=== PATIENT | female | born 1990 | race Caucasian/White ===

== ENCOUNTER 2019-10-20 20:31 | Emergency (ER) | payer SELFPAY ==
[2019-10-20] MEDS ORDERED: Sodium Chloride 0.9% 2.5 ML Syringe FLUSH PRN (20:48)
[2019-10-20] MEDS ORDERED: Morphine 2 MG/ML Syringe IVPUSH ONE (20:48)
[2019-10-20] MEDS ORDERED: Sodium Chloride 0.9% 1,000 ML IV ONE ×2 (20:48→21:55)
[2019-10-20] MEDS ORDERED: Ondansetron 4 MG/2 ML SDV IVPUSH ONE (20:48)
[2019-10-20] MEDS ORDERED: Sodium Chloride 0.9% 10 ML Syringe FLUSH PRN (20:48)
--- NOTE | 2019-10-20 20:49 | EDM.PDOC ---
ED HPI GENERAL MEDICAL PROBLEM - General Chief Complaint: Diabetic Complaint Stated Complaint: VOMITING AND SUGAR LEVEL IS HIGH Time Seen by Provider: 10/20/19 20:40 - History of Present Illness INITIAL COMMENTS - FREE TEXT/NARRATIVE: HISTORY AND PHYSICAL: History of present illness: The patient is a 28-year-old female who is a type I diabetic and has an insulin pump in place and has been on the insulin pump for almost 3 years following with a provider back at home in [place], and who recently relocated here and has no primary care set up, who presents with waking this morning with diffuse body aches and pains including lower back pain and diffuse abdominal pain more epigastric and then intractable nausea and vomiting all day. The patient says her blood sugar has been up and down all day and she is not sure if that is the problem. She does says that yesterday she did have some upper respiratory symptoms including a slight cough and congestion and body aches but no fevers or specific symptoms that she was concerned about. When she woke this morning she had all these other symptoms. She says her abdominal pain is diffuse but more in the epigastric area and suprapubic area and the pain and vomiting started simultaneously. She's had no diarrhea with this and has only had 2 small urine outputs. Her last hemoglobin A1c was about 6 months ago and was 6-1/ 2. The patient's insulin pump has a basal rate and also doses her with sliding scale insulin, and she also doses herself with sliding scale insulin as needed. She says she has not eaten much today. She is on control and denies as she just finished her period. She has no urinary complaints such as dysuria frequency hematuria and has no specific flank pain. This patient did not get her influenza shot this year. She tells me that she had a swallow study done at home in [place] which diagnosed her with gastroparesis but she does not take any medicines regularly for that and her last episode of gastroparesis and vomiting was more than 6 months ago. Review of systems: As per history of present illness and below otherwise all systems reviewed and negative. Past medical history: As per history of present illness and as reviewed below otherwise noncontributory. Surgical history: As per history of present illness and as reviewed below otherwise noncontributory. Social history: No reported history of drug or alcohol abuse. Family history: As per history of present illness and as reviewed below otherwise noncontributory. Physical exam: General: Well-developed well-nourished female who is tearful on my evaluation but is nontoxic and does not look clinically dehydrated with copious tears and normal secretions. Vital signs are noted by me ; patient is very anxious HEENT: Atraumatic, normocephalic, pupils reactive, negative for conjunctival pallor or scleral icterus, mucous membranes moist, throat clear, neck supple, nontender, trachea midline. Lungs: Clear to auscultation, breath sounds equal bilaterally, chest nontender. Heart: S1S2, regular, negative for clicks, rubs, or JVD. Abdomen: Soft, nondistended, no sounds are hypoactive, there is diffuse abdominal tenderness more localized in the epigastrium and suprapubic area but no rebound or guarding. The patient is somewhat exaggerated with my exam. Negative for masses or hepatosplenomegaly. Negative for costovertebral tenderness. Pelvis: Stable nontender. Genitourinary: Deferred. Rectal: Deferred. Extremities: Atraumatic, negative for cords or calf pain. Neurovascular unremarkable. Neuro: Awake, alert, oriented. Cranial nerves II through XII unremarkable. Cerebellum unremarkable. Motor and sensory unremarkable throughout. Exam nonfocal. Back: There is no specific CVA tenderness or any midline tenderness of the thoracic or lumbar spine and there is diffuse paraspinal lumbar discomfort without specific reproducibility Diagnostics: Accu-Chek, CBC CMP amylase lipase lactic acid UA with reflex HCG venous blood gas CMP tones here hemoglobin A1c influenza chest x-ray CT scan of the abdomen and pelvis Therapeutics: IV fluids Zofran Protonix morphine insulin Ativan, tramadol Patient is complaining to nursing of cramping and pain and in the past her provider has given her tramadol for this so she is requesting one tablet Patient is no longer nauseated and she has not vomiting. Her pain in her abdomen is significantly improved as is her muscle aches and cramps. We are currently awaiting the remainder of her testing results. Her heart rate is also normalized rate I will discuss with her the need to connect with a local physician for primary care management of her diabetes and any future issues with her gastroparesis. Impression: Mild hyperglycemia with history of type 1 diabetes, abdominal pain and vomiting with history of gastroparesis improved, diffuse body aches and muscle aches Definitive disposition and diagnosis as appropriate pending reevaluation and review of above. 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: Psychiatric History: Reports: Anxiety, Depression, Suicide Attempt Endocrine/Metabolic History: Reports: Diabetes, Type I Insulin Pump Model and Stunt Woman: metronic - Past Surgical History HEENT Surgical History: Reports: Myringotomy w Tube(s), Tonsillectomy Female Surgical History: Reports: Section, D&C Endocrine Surgical History: Reports: None Social & Family History - Tobacco Use Smoking Status *Q: Current Every Day Smoker Years of Tobacco use: 8 Packs/Tins Daily: 1 - Caffeine Use Caffeine Use: Reports: None - Recreational Drug Use Recreational Drug Use: No ED ROS GENERAL - Review of Systems Review Of Systems: Comprehensive ROS is negative, except as noted in HPI. ED EXAM GENERAL NO PERIP PULSE - Physical Exam Exam: See Below (See dictation) Course - Vital Signs Last Recorded V/S: Last Vital Signs Temp 36.2 C 10/20/19 20:33 Pulse 75 10/20/19 23:47 Resp 14 10/20/19 23:47 BP 106/61 10/20/19 23:47 Pulse Ox 96 10/20/19 23:47 - Orders/Labs/Meds Orders: Active Orders 24 hr Category Date Time Status Sodium Chloride 0.9% [Saline Flush] Med 10/20/19 20:48 Active 10 ml FLUSH ASDIRECTED PRN Sodium Chloride 0.9% [Saline Flush] Med 10/20/19 20:48 Active 2.5 ml FLUSH ASDIRECTED PRN Saline Lock Insert [OM.PC] Stat Oth 10/20/19 20:46 Ordered Medication Orders Sodium Chloride (Saline Flush) 10 ml FLUSH ASDIRECTED PRN PRN Reason: Keep Vein Open Sodium Chloride (Saline Flush) 2.5 ml FLUSH ASDIRECTED PRN PRN Reason: Keep Vein Open Labs: Laboratory Tests 10/20/19 10/20/19 10/20/19 Range/Units 21:01 21:01 21:01 WBC 15.54 H (4.0-11.0) K/uL RBC 5.13 (4.30-5.90) M/uL Hgb 15.1 (12.0-16.0) g/dL Hct 43.2 (36.0-46.0) % MCV 84.2 (80.0-98.0) fL MCH 29.4 (27.0-32.0) pg MCHC 35.0 (31.0-37.0) g/dL RDW Std Deviation 39.2 (28.0-62.0) fl RDW Coeff of Damir 13 (11.0-15.0) % Plt Count 331 (150-400) K/uL MPV 10.00 (7.40-12.00) fL Neut % (Auto) 68.9 (48.0-80.0) % Lymph % (Auto) 23.7 (16.0-40.0) % [place] % (Auto) 6.4 (0.0-15.0) % Eos % (Auto) 0.8 (0.0-7.0) % Baso % (Auto) 0.2 (0.0-1.5) % Neut # (Auto) 10.7 H (1.4-5.7) K/uL Lymph # (Auto) 3.7 H (0.6-2.4) K/uL [place] # (Auto) 1.0 H (0.0-0.8) K/uL Eos # (Auto) 0.1 (0.0-0.7) K/uL Baso # (Auto) 0.0 (0.0-0.1) K/uL Nucleated RBC % 0.0 /100WBC Nucleated RBCs # 0 K/uL VBG pH (7.31-7.41) VBG pCO2 (35-45) mmHG VBG pO2 (30-40) mmHG VBG HCO3 (22-30) mEq/L VBG Total CO2 (41-51) mmol/L VBG Base Excess (-3.0-3.0) Lactate 1.3 (0.20-2.00) mmol/L Sodium 139 (136-145) mmol/L Potassium 4.0 (3.5-5.1) mmol/L Chloride 102 (98-107) mmol/L Carbon Dioxide 23.3 (21.0-32.0) mmol/L BUN 10 (7.0-18.0) mg/dL Creatinine 0.9 (0.6-1.0) mg/dL Est Cr Clr Drug Dosing 88.68 mL/min Estimated GFR (MDRD) > 60.0 ml/min Glucose 328 H (74-106) mg/dL POC Glucose (60-110) mg/dL Hemoglobin A1c (4.5-6.2) % Calcium 8.7 (8.5-10.1) mg/dL Total Bilirubin 0.4 (0.2-1.0) mg/dL AST 18 (15-37) IU/L ALT 31 (14-63) IU/L Alkaline Phosphatase 66 (46-116) U/L Total Protein 7.8 (6.4-8.2) g/dL Albumin 3.9 (3.4-5.0) g/dL Globulin 3.9 (2.6-4.0) g/dL Albumin/Globulin Ratio 1.0 (0.9-1.6) Amylase 42 (25-115) U/L Lipase 68 L (73-393) U/L HCG, Qual (NEG) Urine Color Urine Appearance Urine pH (5.0-8.0) Ur Specific [place] (1.001-1.035) Urine Protein (NEGATIVE) mg/dL Urine Glucose (UA) (NEGATIVE) mg/dL Urine Ketones (NEGATIVE) mg/dL Urine Occult Blood (NEGATIVE) Urine Nitrite (NEGATIVE) Urine Bilirubin (NEGATIVE) Urine Urobilinogen (<2.0) EU/dL Ur Leukocyte Esterase (NEGATIVE) Urine RBC (0-2/HPF) Urine WBC (0-5/HPF) Ur Epithelial Cells (NONE-FEW) Urine Bacteria (NEGATIVE) Urine Mucus (NONE-MOD) Ketones (NEG) 10/20/19 10/20/19 10/20/19 Range/Units 21:01 21: 21:01 WBC (4.0-11.0) K/uL RBC (4.30-5.90) M/uL Hgb (12.0-16.0) g/dL Hct (36.0-46.0) % MCV (80.0-98.0) fL MCH (27.0-32.0) pg MCHC (31.0-37.0) g/dL RDW Std Deviation (28.0-62.0) fl RDW Coeff of Damir (11.0-15.0) % Plt Count (150-400) K/uL MPV (7.40-12.00) fL Neut % (Auto) (48.0-80.0) % Lymph % (Auto) (16.0-40.0) % [place] % (Auto) (0.0-15.0) % Eos % (Auto) (0.0-7.0) % Baso % (Auto) (0.0-1.5) % Neut # (Auto) (1.4-5.7) K/uL Lymph # (Auto) (0.6-2.4) K/uL [place] # (Auto) (0.0-0.8) K/uL Eos # (Auto) (0.0-0.7) K/uL Baso # (Auto) (0.0-0.1) K/uL Nucleated RBC % /100WBC Nucleated RBCs # K/uL VBG pH 7.44 H (7.31-7.41) VBG pCO2 33 L (35-45) mmHG VBG pO2 56 H (30-40) mmHG VBG HCO3 22 (22-30) mEq/L VBG Total CO2 19 L (41-51) mmol/L VBG Base Excess -1.1 (-3.0-3.0) Lactate (0.20-2.00) mmol/L Sodium (136-145) mmol/L Potassium (3.5-5.1) mmol/L Chloride (98-107) mmol/L Carbon Dioxide (21.0-32.0) mmol/L BUN (7.0-18.0) mg/dL Creatinine (0.6-1.0) mg/dL Est Cr Clr Drug Dosing mL/min Estimated GFR (MDRD) ml/min Glucose (74-106) mg/dL POC Glucose (60-110) mg/dL Hemoglobin A1c 8.1 H (4.5-6.2) % Calcium (8.5-10.1) mg/dL Total Bilirubin (0.2-1.0) mg/dL AST (15-37) IU/L ALT (14-63) IU/L Alkaline Phosphatase (46-116) U/L Total Protein (6.4-8.2) g/dL Albumin (3.4-5.0) g/dL Globulin (2.6-4.0) g/dL Albumin/Globulin Ratio (0.9-1.6) Amylase (25-115) U/L Lipase (73-393) U/L HCG, Qual (NEG) Urine Color Urine Appearance Urine pH (5.0-8.0) Ur Specific [place] (1.001-1.035) Urine Protein (NEGATIVE) mg/dL Urine Glucose (UA) (NEGATIVE) mg/dL Urine Ketones (NEGATIVE) mg/dL Urine Occult Blood (NEGATIVE) Urine Nitrite (NEGATIVE) Urine Bilirubin (NEGATIVE) Urine Urobilinogen (<2.0) EU/dL Ur Leukocyte Esterase (NEGATIVE) Urine RBC (0-2/HPF) Urine WBC (0-5/HPF) Ur Epithelial Cells (NONE-FEW) Urine Bacteria (NEGATIVE) Urine Mucus (NONE-MOD) Ketones NEGATIVE (NEG) 10/20/19 10/20/19 10/20/19 Range/Units 21:02 21:16 22:37 WBC (4.0-11.0) K/uL RBC (4.30-5.90) M/uL Hgb (12.0-16.0) g/dL Hct (36.0-46.0) % MCV (80.0-98.0) fL MCH (27.0-32.0) pg MCHC (31.0-37.0) g/dL RDW Std Deviation (28.0-62.0) fl RDW Coeff of Damir (11.0-15.0) % Plt Count (150-400) K/uL MPV (7.40-12.00) fL Neut % (Auto) (48.0-80.0) % Lymph % (Auto) (16.0-40.0) % [place] % (Auto) (0.0-15.0) % Eos % (Auto) (0.0-7.0) % Baso % (Auto) (0.0-1.5) % Neut # (Auto) (1.4-5.7) K/uL Lymph # (Auto) (0.6-2.4) K/uL [place] # (Auto) (0.0-0.8) K/uL Eos # (Auto) (0.0-0.7) K/uL Baso # (Auto) (0.0-0.1) K/uL Nucleated RBC % /100WBC Nucleated RBCs # K/uL VBG pH (7.31-7.41) VBG pCO2 (35-45) mmHG VBG pO2 (30-40) mmHG VBG HCO3 (22-30) mEq/L VBG Total CO2 (41-51) mmol/L VBG Base Excess (-3.0-3.0) Lactate (0.20-2.00) mmol/L Sodium (136-145) mmol/L Potassium (3.5-5.1) mmol/L Chloride (98-107) mmol/L Carbon Dioxide (21.0-32.0) mmol/L BUN (7.0-18.0) mg/dL Creatinine (0.6-1.0) mg/dL Est Cr Clr Drug Dosing mL/min Estimated GFR (MDRD) ml/min Glucose (74-106) mg/dL POC Glucose 270 H (60-110) mg/dL Hemoglobin A1c (4.5-6.2) % Calcium (8.5-10.1) mg/dL Total Bilirubin (0.2-1.0) mg/dL AST (15-37) IU/L ALT (14-63) IU/L Alkaline Phosphatase (46-116) U/L Total Protein (6.4-8.2) g/dL Albumin (3.4-5.0) g/dL Globulin (2.6-4.0) g/dL Albumin/Globulin Ratio (0.9-1.6) Amylase (25-115) U/L Lipase (73-393) U/L HCG, Qual NEGATIVE (NEG) Urine Color YELLOW Urine Appearance SLT CLOUDY Urine pH 6.0 (5.0-8.0) Ur Specific [place] 1.020 (1.001-1.035) Urine Protein NEGATIVE (NEGATIVE) mg/dL Urine Glucose (UA) >=1000 (NEGATIVE) mg/dL Urine Ketones 40 H (NEGATIVE) mg/dL Urine Occult Blood TRACE-INTACT H (NEGATIVE) Urine Nitrite NEGATIVE (NEGATIVE) Urine Bilirubin NEGATIVE (NEGATIVE) Urine Urobilinogen 0.2 (<2.0) EU/dL Ur Leukocyte Esterase NEGATIVE (NEGATIVE) Urine RBC 1-3 (0-2/HPF) Urine WBC 0-2 (0-5/HPF) Ur Epithelial Cells FEW (NONE-FEW) Urine Bacteria RARE (NEGATIVE) Urine Mucus LIGHT (NONE-MOD) Ketones (NEG) Meds: Medications Generic Name Dose Route Start Last Admin Trade Name Freq PRN Reason Stop Dose Admin Sodium Chloride 10 ml 10/20/19 20:48 Saline Flush FLUSH ASDIRECTED PRN Keep Vein Open Sodium Chloride 2.5 ml 10/20/19 20:48 Saline Flush FLUSH ASDIRECTED PRN Keep Vein Open Discontinued Medications Generic Name Dose Route Start Last Admin Trade Name Freq PRN Reason Stop Dose Admin Pantoprazole Sodium 80 mg/ 100 mls @ 10 mls/hr 10/20/19 21:00 Sodium Chloride IV .Continuous SAWYER Sodium Chloride 1,000 mls @ 999 mls/hr 10/20/19 20:48 10/20/19 21:08 Normal Saline IV 10/20/19 21:48 999 mls/hr STAT ONE Administration Pantoprazole Sodium 80 mg/ 20 mls @ 420 mls/hr 10/20/19 21:30 10/20/19 21:31 Sodium Chloride IVPUSH 10/20/19 21:32 420 mls/hr ONETIME ONE Administration Sodium Chloride 1,000 mls @ 999 mls/hr 10/20/19 21:55 10/20/19 22:06 Normal Saline IV 10/20/19 22:55 999 mls/hr STAT ONE Administration Insulin Human Regular 10 unit 10/20/19 20:54 10/20/19 21:14 Novolin R SUBCUT 10/20/19 20:55 10 units ONETIME ONE Administration Protocol Iopamidol 100 ml 10/20/19 22:35 10/20/19 23:35 Isovue-370 (76%) IVPUSH 10/20/19 22:36 100 ml ONETIME ONE Administration Lorazepam 1 mg 10/20/19 21:29 10/20/19 21:40 Ativan IVPUSH 10/20/19 21:30 1 mg ONETIME ONE Administration Morphine Sulfate 2 mg 10/20/19 20:48 10/20/19 21:09 Morphine IVPUSH 10/20/19 20:49 2 mg ONETIME ONE Administration Ondansetron HCl 4 mg 10/20/19 20:48 10/20/19 21:09 Zofran IVPUSH 10/20/19 20:49 4 mg ONETIME ONE Administration Pantoprazole Sodium Confirm 10/20/19 21:21 10/20/19 21:32 Protonix Iv Administered 10/20/19 21:22 Not Given Dose 80 mg .ROUTE .STK-MED ONE Tramadol HCl 50 mg 10/20/19 22:01 10/20/19 22:06 Ultram PO 10/20/19 22:02 50 mg ONETIME ONE Administration Tramadol HCl 50 mg 10/20/19 23:39 10/20/19 23:47 Ultram PO 10/20/19 23:40 50 mg ONETIME ONE Administration Departure - Departure Time of Disposition: 23:57 Disposition: Home, Self-Care 01 Condition: Good Clinical Impression: Abdominal pain with vomiting, Hyperglycemia due to type 1 diabetes mellitus - Discharge Information Forms: ED Department Discharge Additional Instructions: The following information is given to patients seen in the emergency department who are being discharged to home. This information is to outline your options for follow-up care. We provide all patients seen in our emergency department with a follow-up referral. The need for follow-up, as well as the timing and circumstances, are variable depending upon the specifics of your emergency department visit. If you don't have a primary care physician on staff, we will provide you with a referral. We always advise you to contact your personal physician following an emergency department visit to inform them of the circumstance of the visit and for follow-up with them and/or the need for any referrals to a consulting specialist. The emergency department will also refer you to a specialist when appropriate. This referral assures that you have the opportunity for followup care with a specialist. All of these measure are taken in an effort to provide you with optimal care, which includes your followup. Under all circumstances we always encourage you to contact your private physician who remains a resource for coordinating your care. When calling for followup care, please make the office aware that this follow-up is from your recent emergency room visit. If for any reason you are refused follow-up, please contact the [facility] emergency department at and ask to speak to the emergency department charge nurse. [facility] Primary care- Internal Medicine and Family [place] [id number] [place] [id number] Push hydration and continue to watch her diet. Restart your insulin pump and monitor your blood sugars closely. Please keep in mind that your hemoglobin A1c was elevated today at 8.1 compared to your prior number and this needs to be addressed along with today's symptoms with primary care provider. Please connect with our clinic in the morning and schedule a follow-up appointment for reevaluation and further care and return to ER as needed and as discussed. Use medications as prescribed to you from [facility] --zofran and tramadol--- as needed for nausea and vomiting as well as muscle cramping and pain. - My Orders Last 24 Hours: My Active Orders 10/20/19 20:46 Saline Lock Insert [OM.PC] Stat 10/20/19 20:48 Sodium Chloride 0.9% [Saline Flush] 10 ml FLUSH ASDIRECTED PRN Sodium Chloride 0.9% [Saline Flush] 2.5 ml FLUSH ASDIRECTED PRN - Assessment/Plan Last 24 Hours: My Active Orders 10/20/19 20:46 Saline Lock Insert [OM.PC] Stat 10/20/19 20:48 Sodium Chloride 0.9% [Saline Flush] 10 ml FLUSH ASDIRECTED PRN Sodium Chloride 0.9% [Saline Flush] 2.5 ml FLUSH ASDIRECTED PRN
[2019-10-20] MEDS ORDERED: Insulin Regular, Human 100 Units/ML 10 ML Vial SUBCUT ONE (20:54)
[2019-10-20] MEDS ORDERED: Pantoprazole 80 MG in Sodium Chloride 0.9% 100 ML IV SCH (21:00)
[2019-10-20 21:21] LABS: HEMOGLOBIN A1C 8.1 % (4.5-6.2)
[2019-10-20] MEDS: Pantoprazole 40 MG Vial ONE ×2 (21:27→21:32)
[2019-10-20] MEDS ORDERED: LORazepam 2 MG/ML SDV IVPUSH ONE (21:29)
[2019-10-20 21:30] LABS: BLOOD UREA NITROGEN,BUN 10 mg/dL (7.0-18.0); CARBON DIOXIDE,CO2 23.3 mmol/L (21.0-32.0); CHLORIDE,CL 102 mmol/L (98-107); GLUCOSE RANDOM 328 mg/dL (74-106); LIPASE 68 U/L (73-393); SODIUM,NA 139 mmol/L (136-145)
[2019-10-20] MEDS ORDERED: Pantoprazole 80 MG in Sodium Chloride 0.9% 20 ML IVPUSH ONE (21:30)
[2019-10-20] MEDS ORDERED: traMADol 50 MG Tab PO ONE ×2 (22:01→23:39)
[2019-10-20] MEDS ORDERED: Iopamidol 755 Mg/ML 100 ML Bottle IVPUSH ONE (22:35)
--- NOTE | 2019-10-20 23:45 | CR ---
INDICATION: Chest and abdominal pain TECHNIQUE: Chest 1 view COMPARISON: None FINDINGS: Cardiovascular and mediastinum: Heart size and vasculature are normal in caliber and appearance. Lungs and pleural spaces: Lungs are clear. No sign of infiltrate or mass. No sign of pleural effusion. No pneumothorax. Bones and soft tissues: No significant findings. IMPRESSION: Unremarkable single view chest. Dictated by Horace Rojas MD @ Oct 20 2019 11:39PM Signed by Dr. Horace Rojas @ Oct 20 2019 11:43PM
--- NOTE | 2019-10-20 23:56 | CT ---
INDICATION: Chest and abdominal pain TECHNIQUE: CT abdomen and pelvis acquired with 100 cc Isovue 370 intravenous contrast. COMPARISON: None. FINDINGS: Lower chest: Unremarkable. Liver: Unremarkable. Normal in size and attenuation. No masses. Gallbladder and bile ducts: Unremarkable. No stones or inflammation. No biliary dilatation. Pancreas: Unremarkable. No mass or inflammation. Spleen: Unremarkable. Normal in size. No masses. Adrenal glands: Unremarkable. No nodules. Kidneys: Unremarkable. No masses, stones, or hydronephrosis. GI tract: The stomach is unremarkable. There are no dilated loops of large or small intestine. Appendix is seen and is unremarkable. Vasculature: Unremarkable. Pelvis: Bladder decompressed and uterus is unremarkable. Dominant follicle left ovary measuring 2.8 centimeters. Bones: Unremarkable for age. IMPRESSION: Unremarkable abdomen and pelvis CT. No dilated bowel or localizing inflammation. Please note that all CT scans at this facility use dose modulation, iterative reconstruction, and/or weight-based dosing when appropriate to reduce radiation dose to as low as reasonably achievable. Dictated by Horace Rojas MD @ Oct 20 2019 11:39PM Signed by Dr. Horace Rojas @ Oct 20 2019 11:56PM
== END 2019-10-21 00:13 | disposition home or self-care (01) ==
LOC: MW.ED 20:31
DX: M54.5 Low back pain (principal); R10.13 Epigastric pain; E10.65 Type 1 diabetes mellitus with hyperglycemia; F41.9 Anxiety disorder, unspecified; F32.9 Major depressive disorder, single episode, unspecified; F17.210 Nicotine dependence, cigarettes, uncomplicated; Z88.0 Allergy status to penicillin; Z91.040 Latex allergy status; Z79.899 Other long term (current) drug therapy
CPT/HCPCS: 36415; 71045; 74177; 80053; 81001; 82009; 82150; 82803; 82962; 83036; 83605; 83690; 84703; 85025; 87804; 96361; 96372; 96374; 96375; 99285; A9270; C9113; J2060; J2270; J2405; J7040; Q9967; J1815-GY; J7030